=== PATIENT | male | born 1980 | race Two or more races ===

== ENCOUNTER 2017-01-14 14:15 | Emergency (ER) | payer MEDICAID ==
[~2017-01-14] VITALS: Ht 167.6 cm; Wt 61.2 kg
[~2017-01-14 14:15] MED LIST: CEPHALEXIN500 MG ORAL; IBUPROFEN600 MG ORAL; METHADONE HCL10 MG PO; NKM
[2017-01-14 14:42] VITALS: BP 136/112
[2017-01-14 15:00] LABS: BASOPHILS % (AUTO) 1.2 % (0.0-2.0); EOSINOPHILS % (AUTO) 0.2 % (0.0-3.0); LYMPHOCYTES % (AUTO) 11.5 % (20.0-45.0); MEAN CORPUSCULAR VOLUME 97 FL (80-99); MEAN PLATELET VOLUME 6.9 FL (6.5-10.1); MONOCYTES % (AUTO) 5.8 % (1.0-10.0); NEUTROPHILS % (AUTO) 81.3 % (45.0-75.0); PLATELET COUNT 238 K/UL (150-450); RED CELL DISTRIBUTION WIDTH 10.9 % (11.6-14.8); WHITE BLOOD COUNT 9.6 K/UL (4.8-10.8)
[2017-01-14 15:19] LABS: INR 0.9 (0.9-1.1); PROTHROMBIN TIME 9.7 SEC (9.30-11.50)
[2017-01-14 15:24] LABS: ALANINE AMINOTRANSFERASE 60 U/L (12-78); ALBUMIN/GLOBULIN RATIO 0.9 (1.0-2.7); ANION GAP 10 (5-15); ASPARTATE AMINO TRANSFERASE 39 U/L (15-37); CALCIUM 9.2 MG/DL (8.5-10.1); CARBON DIOXIDE 27 MMOL/L (21-32); CHLORIDE 105 MMOL/L (98-107); GLOMERULAR FILTRATION RATE > 60 mL/min (>60); LIPASE 220 U/L (73-393); POTASSIUM 3.9 MMOL/L (3.5-5.1); SODIUM 142 MMOL/L (136-145); TOTAL PROTEIN 8.6 G/DL (6.4-8.2)
[2017-01-14] MEDS ORDERED: LORazepam Inj 2mg/ml 1ml IV ONE (16:30)
[2017-01-14] MEDS ORDERED: Metoclopramide 10mg/2ml Inj IVP ONE (16:30)
[2017-01-14] MEDS ORDERED: ZANTAC150 MG ORAL (17:23)
[2017-01-14] MEDS ORDERED: ZOFRAN ODT4 MG ORAL (17:23)
--- NOTE | 2017-01-14 17:23 | Emergency Room Report ---
History of Present Illness General Chief Complaint: Nausea Source: EMS Present Illness HPI 37-year-old male presents to the emergency department complaining of multiple episodes of vomiting since last night status post alcohol consumption celebrating his birthday in addition to eating street tacos. 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 Patient denies history of high blood pressure. Patient reports 4/10 in severity epigastric cramping denies abdominal tenderness and reports pain is intermittent usually during episodes of vomiting. Patient reports he is noticing dark brown blood in his vomit he denies history of GI bleed, ulcers, bright red blood in the vomit, dark tarry stools or blood in the stool/ denies constipation or diarrhea. Denies CP, Palpitations, LOC, AMS, dizziness, Changes in Vision, Sensation, paresthesias, or a sudden severe headache. Allergies: Coded Allergies: No Known Allergies (Unverified , 11/25/15) Patient History Past Medical History: see triage record Past Surgical History: none Pertinent Family History: none Social History: Reports: alcohol use - daily., drug use - opiates Reviewed Nursing Documentation: PMH: Agreed, PSxH: Agreed Nursing Documentation-PMH Past Medical History: No Stated History Review of Systems All Other Systems: negative except mentioned in HPI Physical Exam Vital Signs Date Time Temp Pulse Resp B/P (MAP) Pulse Ox O2 Delivery O2 Flow Rate FiO2 01/14/17 14:10 98.2 78 16 146/90 9 01/14/17 14:42 Room Air Sp02 EP Interpretation: reviewed, normal General Appearance: no apparent distress, alert, GCS 15, non-toxic, mild distress Head: normocephalic, atraumatic Eyes: bilateral eye normal inspection, bilateral eye PERRL ENT: hearing grossly normal, normal voice, pharyngeal erythema Neck: full range of motion, supple/symm/no masses Respiratory: lungs clear, normal breath sounds, no wheezing, speaking full sentences Cardiovascular #1: regular rate, rhythm, normal capillary refill Gastrointestinal: normal bowel sounds, non tender, soft, no guarding, no rebound Rectal: deferred Genitourinary: normal inspection, no CVA tenderness Musculoskeletal: back normal, gait/station normal, normal range of motion, non- tender Neurologic: alert, oriented x3, responsive, motor strength/tone normal, sensory intact, speech normal Psychiatric: judgement/insight normal, memory normal, mood/affect normal, anxious Skin: normal color, no rash, warm/dry, well hydrated Lymphatic: no adenopathy Medical Decision Making PA Attestation Dr. Byrne is my supervising Physician whom patient management has been discussed with. Diagnostic Impression: Primary Impression: Gastritis Qualified Codes: K29.70 - Gastritis, unspecified, without bleeding Additional Impression: Mild dehydration ER Course 37-year-old male presents to the emergency department complaining of multiple episodes of vomiting since last night status post alcohol consumption celebrating his birthday in addition to eating street tacos. 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 Patient denies history of high blood pressure. Patient reports 4/10 in severity epigastric cramping denies abdominal tenderness and reports pain is intermittent usually during episodes of vomiting. Patient reports he is noticing dark brown blood in his vomit he denies history of GI bleed, ulcers, bright red blood in the vomit, dark tarry stools or blood in the stool/ denies constipation or diarrhea. Denies CP, Palpitations, LOC, AMS, dizziness, Changes in Vision, Sensation, paresthesias, or a sudden severe headache. Ddx considered but are not limited to GE, colitis, acute appy, SBO, PUD, varices , Opiate w/d, GI bleed just to name a few. Vital signs: pt. is afebrile, anxious in appearance in mild distress with vomiting. H&PE are most consistent with GE ORDERS: -CBC, CMP, PT/PTT: Coags are normal and no evidence of anemia and no leukocytosis, electrolytes are normal. - Lipase: WNL ED INTERVENTIONS: -20mg Pepcid IV -1000 NS iv hydration, - 4mg IVP zofran for nausea. -1 mg Ativan IV -10mg Reglan IV Pt. now able to tolerate oral fluids. - Pt. is given strict return to ED precautions for worsening or new symptoms. DISCHARGE: At this time pt. is stable for d/c to home. Will provide printed patient care instructions, and any necessary prescriptions. Care plan and follow up instructions have been discussed with the patient prior to discharge. Labs Test 01/14/17 14:28 White Blood Count 9.6 K/UL (4.8-10.8) Red Blood Count 4.80 M/UL (4.70-6.10) Hemoglobin 15.8 G/DL (14.2-18.0) Hematocrit 46.5 % (42.0-52.0) Mean Corpuscular Volume 97 FL (80-99) Mean Corpuscular Hemoglobin 33.0 PG (27.0-31.0) Mean Corpuscular Hemoglobin Concent 34.0 G/DL (32.0-36.0) Red Cell Distribution Width 10.9 % (11.6-14.8) Platelet Count 238 K/UL (150-450) Mean Platelet Volume 6.9 FL (6.5-10.1) Neutrophils (%) (Auto) 81.3 % (45.0-75.0) Lymphocytes (%) (Auto) 11.5 % (20.0-45.0) Monocytes (%) (Auto) 5.8 % (1.0-10.0) Eosinophils (%) (Auto) 0.2 % (0.0-3.0) Basophils (%) (Auto) 1.2 % (0.0-2.0) Prothrombin Time 9.7 SEC (9.30-11.50) Prothromb Time International Ratio 0.9 (0.9-1.1) Activated Partial Thromboplast Time 25 SEC (23-33) Sodium Level 142 MMOL/L (136-145) Potassium Level 3.9 MMOL/L (3.5-5.1) Chloride Level 105 MMOL/L (98-107) Carbon Dioxide Level 27 MMOL/L (21-32) Anion Gap 10 (5-15) Blood Urea Nitrogen 13 mg/dL (7-18) Creatinine 1.0 MG/DL (0.55-1.30) Estimat Glomerular Filtration Rate > 60 mL/min (>60) Glucose Level 128 MG/DL (74-106) Calcium Level 9.2 MG/DL (8.5-10.1) Total Bilirubin 0.3 MG/DL (0.2-1.0) Aspartate Amino Transf (AST/SGOT) 39 U/L (15-37) Alanine Aminotransferase (ALT/SGPT) 60 U/L (12-78) Alkaline Phosphatase 78 U/L (46-116) Total Protein 8.6 G/DL (6.4-8.2) Albumin 4.1 G/DL (3.4-5.0) Globulin 4.5 g/dL Albumin/Globulin Ratio 0.9 (1.0-2.7) Lipase 220 U/L (73-393) Last Vital Signs Date Time Temp Pulse Resp B/P (MAP) Pulse Ox O2 Delivery O2 Flow Rate FiO2 01/14/17 14:42 98.2 97 18 136/112 98 Room Air Disposition: HOME, SELF-CARE Condition: Stable Scripts Ranitidine Hcl* (ZANTAC*) 150 Mg Tablet 150 MG ORAL TWICE A DAY for 14 Days, #28 TAB Prov: Princess Witt 01/14/17 Ondansetron Odt* (ZOFRAN ODT*) 4 Mg Tab.rapdis 4 MG ORAL Q6H Y for Nausea & Vomiting, #30 TAB Prov: Princess Witt 01/14/17 Referrals: [facility],REFERRING (PCP) Patient Instructions: Nausea and Vomiting, Adult Additional Instructions: Take medications as directed. Follow up with a Primary Care Provider in 2 days, even if your symptoms have resolved. --Please review list of primary care clinics, if you do not already have a primary care provider Return sooner to ED if new symptoms occur, or current symptoms become worse. - Please note that this Emergency Department Report was dictated using [employer] technology software, occasionally this can lead to erroneous entry secondary to interpretation by the dictation equipment. Princess Witt Jan 14, 2017 17:23
[2017-01-14 17:43] VITALS: BP 136/112
== END 2017-01-14 17:44 | disposition home or self-care (01) ==
LOC: EDBD 14:15 → EMR 15:30
DX: K29.70 Gastritis, unspecified, without bleeding (principal); E86.0 Dehydration
CPT/HCPCS: 36415; 80053; 83690; 85025; 85610; 85730; 96361; 96374; 96375; 99284; J2405; J2765; S0028